=== PATIENT | female | born 1960 | race Caucasian/White ===

== ENCOUNTER → 2022-06-07 | Emergency (ER) | payer OTHER ==
[~2022-06-07] VITALS: Ht 147.3 cm; Wt 63.5 kg
[2022-06-07 12:07] VITALS: BP_SYST 142
--- NOTE | 2022-06-07 13:50 | NUR ---
Patient left without being seen.
== END | disposition left against medical advice (07) ==
LOC: SED 11:48
DX: M25.551 Pain in right hip (principal); Z53.21 Procedure and treatment not carried out due to patient leaving prior to being seen by health care provider

== ENCOUNTER 2024-04-25 08:29 | Outpatient (CLI) | payer OTHER ==
[2024-04-25 09:29] LABS: BASOPHILS # (AUTO) 0.1 K/uL (0.0-0.2); BASOPHILS % (AUTO) 0.9 % (0.0-2.0); EOSINOPHILS # (AUTO) 0.2 K/uL (0.0-0.4); EOSINOPHILS % (AUTO) 3.6 % (0.0-4.0); HEMATOCRIT 39.7 % (36-48); HEMOGLOBIN 13.2 g/dL (12.0-16.0); LYMPHOCYTES # (AUTO) 1.8 K/uL (1.0-5.5); MEAN CORPUSCULAR HEMOGLOBIN 30 pg (27-31); MEAN CORPUSCULAR HGB CONC 33 % (32-36); MEAN CORPUSCULAR VOLUME 90 fL (79.0-98.0); MONOCYTES # (AUTO) 0.5 K/uL (0.0-1.0); MONOCYTES % (AUTO) 8.8 % (1.7-9.3); NEUTROPHILS # (AUTO) 3.5 K/uL (1.8-7.7); NEUTROPHILS % (AUTO) 57.7 % (40.0-70.0); PLATELET COUNT (AUTO) 260 K/uL (130-430); RED BLOOD CELL COUNT(AUTO) 4.42 MIL/uL (4.2-6.2); RED CELL DISTRIBUTION WIDTH 12.7 % (9.0-15.0); WHITE BLOOD COUNT (AUTO) 6.1 K/uL (4.8-10.8)
[2024-04-25 09:52] LABS: CALCIUM 9.3 mg/dL (8.4-11.0); CREATININE 0.92 mg/dL (0.55-1.30); FREE T4 (FREE THYROXINE) 0.8 ng/dl (0.8-1.5); POTASSIUM 4.2 mmol/L (3.5-5.1); THYROID STIMULATING HORMONE 12.89 uIu/mL (0.36-3.74); TOTAL PROTEIN, SERUM 7.4 g/dL (6.4-8.3)
[2024-04-25 10:05] LABS: HEMOGLOBIN A1C 6.4 % (<5.7)
== END 2024-04-25 18:22 | disposition home or self-care (01) ==
LOC: SMA 08:29
PROVIDERS: ATTEND Internal Medicine
DX: Z12.31 Encounter for screening mammogram for malignant neoplasm of breast (principal); Z00.00 Encounter for general adult medical examination without abnormal findings; I10 Essential (primary) hypertension
CPT/HCPCS: 36415; 77067; 80053; 83037; 84439; 84443; 84480; 85025

== ENCOUNTER 2024-07-04 11:54 | Outpatient (CLI) | payer OTHER | END 2024-07-04 18:50 | disposition home or self-care (01) | LOC: SUS 11:54 | PROVIDERS: ATTEND Internal Medicine | DX: E04.1 Nontoxic single thyroid nodule (principal) | CPT/HCPCS: 76536 ==

== ENCOUNTER 2024-07-26 11:57 | Outpatient (CLI) | payer OTHER | END 2024-07-26 19:00 | disposition home or self-care (01) | LOC: SUS 11:57 | DX: R92.30 Dense breasts, unspecified (principal) | CPT/HCPCS: 76642 ==